=== PATIENT | female | born 1970 | race Caucasian/White ===

== ENCOUNTER 2017-02-09 12:55 | Emergency (ER) | payer OTHER ==
[~2017-02-09] VITALS: Ht 170.2 cm; Wt 113.0 kg
[~2017-02-09 12:55] MED LIST: ADVAIR 100/501 DISK IH; ADVAIR HFA120 INHALA IH; ALEVE-D SINUS1 EACH PO; AMOXICILLIN875 MG PO; Advair HFA 115/21 IH; BABY ASPIRIN81 MG PO; BENZONATATE100 MG PO; CEFUROXIME250 MG PO; COMBIVENT200 INHALA IH; DUONEB 2.5-0.5 M3 ML AEROSOL; FLOVENT INHALER IH; IBUPROFEN800 MG PO; LEVOFLOXACIN750 MG PO; MUCINEX600 MG PO; NAPROSYN500 MG PO; NASONEX17 GM BOTH NARES; NEXIUM; NEXIUM20 MG PO; PAXIL20 MG PO; PEPCID20 MG PO; PERCOCET 5/31 TABLET PO; PREDNISONE20 MG PO; PREVACID 24HR15 MG PO; PROAIR HFA8.5 GM IH; PROAIR IH; PROVENTIL,2.5 MG/3 M IH; PROVENTIL,200 INHALA IH; Proventil,Ventolin H IH; RISPERDAL0.25 MG PO; ROBITUSSIN COU118 M4 PO; ROBITUSSIN100 MG/5 M PO; TRAMADOL HCL50 MG PO; UNKNOWN INHALER; VENTOLIN HFA18 GM IH; VICODIN 5-3001 EACH PO; WELLBUTRIN100 MG PO; ZOFRAN4 MG PO; predniSONE PO
[2017-02-09] MEDS ORDERED: FLEXERIL10 MG PO (14:32)
[2017-02-09] MEDS ORDERED: NAPROSYN500 MG PO (14:32)
[2017-02-09 14:42] VITALS: BP 143/63
== END 2017-02-09 14:42 | disposition home or self-care (01) ==
LOC: EME 12:55
DX: S16.1XXA Strain of muscle, fascia and tendon at neck level, initial encounter (principal); V89.2XXA Person injured in unspecified motor-vehicle accident, traffic, initial encounter; Y92.410 Unspecified street and highway as the place of occurrence of the external cause; J45.909 Unspecified asthma, uncomplicated; K21.9 Gastro-esophageal reflux disease without esophagitis; F17.200 Nicotine dependence, unspecified, uncomplicated
CPT/HCPCS: 72125; 99281; 99284

== ENCOUNTER 2017-04-04 23:37 | Emergency (ER) | payer OTHER ==
[~2017-04-04] VITALS: Ht 152.4 cm; Wt 114.3 kg
[~2017-04-04 23:37] MED LIST changes: +FLEXERIL10 MG PO
[2017-04-05 02:02] VITALS: BP 130/64
== END 2017-04-05 02:03 | disposition home or self-care (01) ==
LOC: EME 23:37
PROC: 2W3HX1Z Immobilization of Left Thumb using Splint (ICD-10-PCS; principal; 2017-04-04)
DX: S61.002A Unspecified open wound of left thumb without damage to nail, initial encounter (principal); W26.0XXA Contact with knife, initial encounter; Y93.G1 Activity, food preparation and clean up; J45.909 Unspecified asthma, uncomplicated; F17.200 Nicotine dependence, unspecified, uncomplicated; Z88.2 Allergy status to sulfonamides; Z88.5 Allergy status to narcotic agent; Z88.1 Allergy status to other antibiotic agents
CPT/HCPCS: 99281; 99283